=== PATIENT | male | born 1955 | race African-American/Black ===

== ENCOUNTER 2017-04-02 20:37 | Emergency (ER) | payer OTHER ==
[~2017-04-02] VITALS: Ht 180.3 cm; Wt 95.2 kg
--- NOTE | ~2017-04-02 | CR63 ---
[facility] A Service of [facility] RADIOLOGY TEXT RESULTS PATIENT: VINCENT SCHOFIELD LOCATION: SED : 51 UNIT #: [id number] AGE: [address]: Yusuf Cooley MD SEX: M ORDER DR: [id number] [place] [id number] E MR#: [id number] Acc #: [id number] NAME: VINCENT SCHOFIELD : 1955 SEX: M STUDY DATE/TIME: 04/02/2017 21:31 UNIT: SED ROOM: STUDY DESCRIPTION: CR Chest 2 View Attending Physician: Yusuf Cooley M.D. Ordering Physician: Yusuf Cooley M.D. Primary Care Physician: Tay Gonzalez Sr., M.D. MEDICAL IMAGING REPORT This report is preliminary unless electronic signature is present. EXAM PA and lateral chest HISTORY Anterior chest pain and palpable knots for 2 weeks. FINDINGS PA and lateral examination of the chest upright shows a good expansion of the parenchyma with a normal distribution of the pulmonary vascularity. There is no indication of congestion, effusion, infiltrate, tumor, or nodular density. The pleural reflections and diaphragmatic contours are normal. The cardiac silhouette and mediastinal anatomy is within normal limits. IMPRESSION Normal chest. Dictated by... Jose Mcclain M.D. THIS IS AN ELECTRONICALLY VERIFIED REPORT Jose Mcclain M.D. at 04/03/2017 4:12 PM EUGENE/lisa TD: 04/03/2017 08:09 JOB #: [id number] MEDICAL IMAGING REPORT Page 1 of 1
[~2017-04-02 20:37] MED LIST: CARAFATE1 G PO; HYDROCHLOROTHIA25 MG PO; NEXIUM PO; SIMVASTATIN80 MG; [UNRECOGNIZED DRUG - OTHER]
[2017-04-02] MEDS ORDERED: GABAPENTIN600 MG PO (20:59)
[2017-04-02] MEDS ORDERED: SIMVASTATIN20 MG PO (21:01)
[2017-04-02] MEDS ORDERED: HYDRALAZINE HCL50 MG PO (21:01)
[2017-04-02] MEDS ORDERED: AMLODIPINE BESY10 MG PO (21:02)
[2017-04-02] MEDS ORDERED: FLOMAX0.4 M1 PO (21:02)
== END 2017-04-02 22:50 | disposition home or self-care (01) ==
LOC: SED 20:37
DX: J98.4 Other disorders of lung (principal); I10 Essential (primary) hypertension; E78.5 Hyperlipidemia, unspecified; F17.200 Nicotine dependence, unspecified, uncomplicated; Z88.2 Allergy status to sulfonamides; Z79.899 Other long term (current) drug therapy
CPT/HCPCS: 71020; 99283